=== PATIENT | female | born 1955 | race Caucasian/White ===

== ENCOUNTER 2018-07-04 11:00 | Inpatient (IN) | payer OTHER, MEDICAID ==
[~2018-07-04] VITALS: Ht 162.6 cm; Wt 78.9 kg
--- NOTE | ~2018-07-04 | CON ---
[address] [address] CONSULTATION Name: QAMAR ELAINE Room: [address] IN M.R.#: [id number] Admission: 07/04/18 Attend Phys: Broderick Rain, Discharge: Date of : 51 Report #: [id number] THIS REPORT FOR: //name// CC: Lauro Rain HISTORY OF PRESENT ILLNESS: This is a pleasant 62-year-old female with past medical history significant for dementia, COPD, DVT, hypertension and hyperlipidemia, who was admitted initially for acute exacerbation of her COPD. The patient's history is limited by her baseline mental status and therefore, most of the history has been obtained from the chart. The patient appears to be a resident of a long-term care facility. There is no history of hematemesis, hematochezia or melena. The patient denies any significant abdominal pain, nausea or vomiting. The GI service has been consulted for evaluation of iron deficiency anemia. PAST MEDICAL HISTORY: The patient has history of diabetes, deep venous thrombosis, COPD, bipolar disorder. SOCIAL HISTORY: The patient quit smoking more than 10 years ago, but appears to have had some history of smoking prior to that. No known history of alcohol or recreational drug use and there is no noted family history of colorectal cancer. REVIEW OF SYSTEMS: Unable to obtain due to the patient's mental status. PHYSICAL EXAMINATION: VITAL SIGNS: Temperature 36.8, pulse rate 66, respirations 17, blood pressure 143/76. GENERAL: The patient is alert, oriented to self, but otherwise not oriented to time, place or person. HEENT: Pupils are equal, round, reactive to light and accommodation. Mucous membranes are moist. There is no congestion. LUNGS: Clear to auscultation bilaterally. CARDIOVASCULAR: Rate and rhythm regular, S1, S2 present. ABDOMEN: Soft. There is no distention, guarding or rigidity. EXTREMITIES: There is bilateral pedal edema. SKIN: Warm and dry and there is no icterus. LABORATORY DATA: Hemoglobin 8.2, hematocrit 26.4, platelet 158. Sodium 141, potassium 5.4, chloride 107, bicarbonate 33, BUN 27, creatinine 1.1. Iron 23, TIBC 405, high percent saturation is 6. Albumin 1.3. ASSESSMENT AND PLAN: This is a pleasant 62-year-old female with past medical history of severe chronic obstructive pulmonary disease, bipolar disorder, depression, hypertension, and hyperlipidemia, was brought into the hospital with chronic obstructive pulmonary disease exacerbation. The gastrointestinal service has been consulted for evaluation [place] [address] CONSULTATION Name: QAMAR ELAINE Room: [address] IN [facility].#: [id number] Admission: 07/04/18 Attend Phys: Broderick Rain, Discharge: Date of : 51 Report #: [id number] anemia. An esophagogastroduodenoscopy and colonoscopy will be monitored for thorough evaluation of her iron deficiency anemia. However, the patient appears to have severe chronic obstructive pulmonary disease and is at high risk for respiratory decompensation following sedation for endoscopy. There is no evidence of overt gastrointestinal bleeding and therefore the risk of endoscopy outweighs any potential benefit at this stage. I will discuss the benefits and risks of his CT colonography, which may require lower dose of sedation with the family and this can be ordered on a more elective basis when she recovers from her chronic obstructive pulmonary disease exacerbation. Continue to monitor hemoglobin of the patient and please call gastrointestinal with any questions. By: [id number] De Anda MD /nt
[2018-07-04 11:02] VITALS: BP 132/66
[2018-07-04] MEDS ORDERED: LIPITOR 20 MG T20 M1 PO (11:27)
[2018-07-04] MEDS ORDERED: NORVASC2.5 MG PO (11:27)
[2018-07-04] MEDS ORDERED: DEPAKOTE ER500 MG PO (11:28)
[2018-07-04] MEDS ORDERED: GABAPENTIN 100100 MG PO (11:29)
[2018-07-04] MEDS ORDERED: LASIX 20 MG TAB20 MG PO (11:29)
[2018-07-04 11:30] LABS: HEMATOCRIT 28.3 % (37.0-47.0); HEMOGLOBIN 8.7 gm/dL (12.0-15.0); MCH 27.5 pg (26.0-34.0); MCHC 30.8 g/dL (28.0-37.0); MCV 89.4 fL (80.0-100.0); MPV 7.5 fl. (7.2-11.1); NUCLEATED RBCS 0 /100WBC; PLATELET COUNT* 185 thou/uL (150-400); RBC 3.17 mil/uL (4.20-5.00); RDW-CV 16.6 % (10.5-14.5); WBC 7.9 thou/uL (4.0-11.0)
[2018-07-04] MEDS ORDERED: LITHIUM CARBON150 MG PO (11:30)
[2018-07-04] MEDS ORDERED: FLOMAX0.4 MG PO (11:31)
[2018-07-04] MEDS ORDERED: RISPERIDONE 00.25 MG PO (11:31)
[2018-07-04] MEDS ORDERED: ESKALITH300 MG PO (11:31)
[2018-07-04] MEDS ORDERED: LOPERAMIDE2 MG PO (11:32)
[2018-07-04] MEDS ORDERED: COUMADIN7.5 MG PO (11:33)
[2018-07-04 11:36] LABS: APTT 26.6 Seconds (25.0-31.3); INR 1.7; PROTIME 17.7 Seconds (9.20-11.50)
[2018-07-04 11:40] LABS: BE 7.3 mmol/L (-2 to +3); PO2 63.9 mmHg (75.0-100.0)
[2018-07-04 11:44] LABS: PCO2 78.5 mmHg (35.0-45.0); pH 7.279 (7.340-7.450)
[2018-07-04 11:47] LABS: ALBUMIN 2.7 g/dL (3.4-5.0); ALKALINE PHOSPHATASE 72 U/L (46-116); ANION GAP 0 mmol/L (7-16); BUN 25 mg/dL (7-18); CALCIUM 8.4 mg/dL (8.5-10.1); CHLORIDE 108 mmol/L (98-107); CO2 37 mmol/L (21-32); CREATININE 1.1 mg/dL (0.6-1.3); GLUCOSE 104 mg/dL (70-99); LIPASE 111 U/L (73-393); NT-PRO BRAIN NAT PEPTIDE 342 pg/mL (<300); POTASSIUM 5.3 mmol/L (3.5-5.1); SGOT 11 U/L (15-37); SGPT 10 U/L (30-65); SODIUM 145 mmol/L (136-145); TOTAL BILIRUBIN 0.1 mg/dL (<0.1-1.0); TROPONIN-I LEVEL <0.06 ng/mL (<0.06)
[2018-07-04 12:02] LABS: ABSOLUTE EOSINOPHILS 0.1 thou/uL (0.0-0.7); ABSOLUTE LYMPHOCYTES 0.5 thou/uL (0.8-5.3); ABSOLUTE MONOCYTES 0.6 thou/uL (0.0-1.2); ABSOLUTE NEUTROPHILS 6.8 thou/uL (1.6-8.1); MYELOCYTES 1 %
[2018-07-04 12:03] LABS: HYPOCHROMASIA 3+
[2018-07-04 12:04] LABS: POLYCHROMASIA Occasional
[2018-07-04 12:05] LABS: ANISOCYTOSIS 1+; PLATELET ESTIMATE ADEQUATE; SCHISTOCYTES Occasional
--- NOTE | 2018-07-04 12:34 | EKG ---
[place] [address] ELECTROCARDIOGRAM REPORT Name: QAMAR ELAINE Room: [place] [address] ADM IN ..#: [id number] Admission: 07/04/18 Attend Phys: Broderick Rain, Discharge: Date of : 51 Report #: [id number] THIS REPORT FOR: //name// [facility] ED Test Date: 2018-07-04 Test Time: 11:03:47 Pat Name: QAMAR ELAINE Department: Room: 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 SANCHEZ : 1955 Requested By: Kush Jain Order Number: [id number] MD: Tesfaye Montague Measurements Intervals Prospect Rate: 88 P: 64 RI: 196 QRS: -3 QRSD: 87 T: 67 QT: 370 QTc: 448 Interpretive Statements Sinus rhythm Borderline low voltage, extremity leads No previous ECG available for comparison Electronically Signed On 07-04-2018 12:33:58 [employer] by Tesfaye Montague [email or web address] <ELECTRONICALLY SIGNED> By: Tesfaye Montague MD, [facility] 07/04/18 1233 1103 02 Tesfaye Montague MD, [facility] /EPI
[2018-07-04 14:37] LABS: BE 4.6 mmol/L (-2 to +3); HCO3 33.9 mmol/L (22.0-26.0); PO2 99.2 mmHg (75.0-100.0)
[2018-07-04 15:45] VITALS: BP 121/63
[2018-07-04 15:59] LABS: PCO2 83.1 mmHg (35.0-45.0); pH 7.228 (7.340-7.450)
[2018-07-04 19:35] VITALS: BP 129/67
[2018-07-04 20:39] LABS: URINE BILIRUBIN NEGATIVE (Negative); URINE BLOOD NEGATIVE (Negative); URINE CLARITY CLEAR; URINE COLOR YELLOW; URINE GLUCOSE-RANDOM NEGATIVE (Negative); URINE KETONES NEGATIVE (Negative); URINE LEUKOCYTES-REFLEX NEGATIVE (Negative); URINE NITRITE-REFLEX NEGATIVE (Negative); URINE PROTEIN 1+ (Negative); URINE UROBILINOGEN 0.2 E.U./dl (0.2-1.0)
[2018-07-05 05:16] LABS: BE 1.1 mmol/L (-2 to +3); HCO3 28.8 mmol/L (22.0-26.0); PO2 113.6 mmHg (75.0-100.0)
[2018-07-05 05:21] LABS: PCO2 62.6 mmHg (35.0-45.0); pH 7.281 (7.340-7.450)
[2018-07-05 07:50] VITALS: BP 145/62
[2018-07-05 08:52] LABS: HEMOGLOBIN 8.5 gm/dL (12.0-15.0); MCH 27.4 pg (26.0-34.0); MCHC 30.5 g/dL (28.0-37.0); MCV 90.1 fL (80.0-100.0); MPV 8.4 fl. (7.2-11.1); RBC 3.1 mil/uL (4.20-5.00); RDW-CV 16.6 % (10.5-14.5); WBC 4.5 thou/uL (4.0-11.0)
[2018-07-05 08:59] LABS: INR 1.2; PROTIME 12.2 Seconds (9.20-11.50)
[2018-07-05 09:07] LABS: ALBUMIN 2.6 g/dL (3.4-5.0); ALKALINE PHOSPHATASE 78 U/L (46-116); ANION GAP 1 mmol/L (7-16); BUN 28 mg/dL (7-18); CHLORIDE 110 mmol/L (98-107); CO2 33 mmol/L (21-32); CREATININE 1.2 mg/dL (0.6-1.3); GLUCOSE 201 mg/dL (70-99); MAGNESIUM 1.9 mg/dL (1.8-2.4); SGOT 24 U/L (15-37); SGPT 27 U/L (30-65); SODIUM 144 mmol/L (136-145); TOTAL BILIRUBIN 0.2 mg/dL (<0.1-1.0); TOTAL PROTEIN 5.9 g/dL (6.4-8.2); TROPONIN-I LEVEL <0.06 ng/mL (<0.06)
[2018-07-05 10:54] LABS: INFLUENZA A ANTIGEN None Detected (None Detect); INFLUENZA B ANTIGEN None Detected (None Detect)
[2018-07-05 12:00] VITALS: BP 123/69
[2018-07-05 16:00] VITALS: BP 130/82
[2018-07-05 19:30] VITALS: BP 131/83
[2018-07-06] VITALS: BP 183/90
--- NOTE | 2018-07-06 07:03 | CON ---
[address] [address] CONSULTATION Name: ELAINEQAMAR Room: [address] IN M.R.#: [id number] Admission: 07/04/18 Attend Phys: Broderick Rain, Discharge: Date of : 51 Report #: [id number] THIS REPORT FOR: //name// CC: Lauro Rain REQUESTING PHYSICIAN: Dr. Rain. REASON FOR CONSULTATION: Aspiration pneumonia and respiratory failure. DISCUSSION: The patient is a 62-year-old woman who was brought to the Emergency Department yesterday evening from her long-term care facility. She apparently had developed increasing respiratory distress and was having a fever. She was not very responsive. Apparently was noted to have dried emesis around her mouth. She was treated recently for pneumonia. O2 saturations were low. She was initially seen in the Emergency Department. Arterial blood gases did reveal hypercapnia and mild hypoxemia. She was subsequently placed on BiPAP. She was having some difficulty tolerating that. She did receive some sedation during the night. Just prior to my seeing earlier this morning, she was able to come off the BiPAP and placed on nasal cannula. She is a fair historian. She has not been at this facility previously. She does carry a diagnosis of COPD. She notes she quit smoking greater than 10 years ago. She states she is on O2 continuously. She had been living in the [facility], was back to this area about 4 or 5 months ago to be closer to other family members. She does have sisters who are her DPOA. Besides a history of COPD, she does have a history of thromboembolic disease. She has had DVT in the past. She does acknowledge that she has had a PE. She has an IVC filter in place, which she notes was placed in [place]. She is chronically anticoagulated. She has been treated for pneumonia in the past as well. She denies having any history of any cancers. She does have a history of bipolar disorder, hypothyroidism and dyslipidemia. On the transfer notes, her medications have been Norvasc, Lipitor, Depakote, Lasix, gabapentin, lithium, risperidone, Flomax, warfarin and p.r.n. Imodium. She also had a p.r.n. Ventolin inhaler noted, which was not on her med sheet in the computer. SOCIAL HISTORY: Remote smoker as noted. She also denies drinking any alcohol. Acknowledges that she held a variety of jobs in the past. FAMILY HISTORY: She denies any family history of lung disease. REVIEW OF SYSTEMS: ROS was done. No positives as above. She does not recall the events that triggered her being brought to the hospital. This morning, she is complaining of a dry mouth and is hungry. [place] [address] CONSULTATION Name: MONAE ELAINEERIE Room: [address] IN [facility]#: [id number] Admission: 07/04/18 Attend Phys: Broderick Rain, Discharge: Date of : 51 Report #: [id number] Denies any shortness of breath. She does acknowledge some cough. She states her sputum is somewhat yellow. She denies any hemoptysis. Denies any chest pain. She is not aware of having any fevers at the nursing facility prior to being transferred over to the hospital. She has intermittently had some lower extremity edema. She denies any syncopal episodes that she is aware of. PHYSICAL EXAMINATION: GENERAL APPEARANCE: A woman who looks chronically ill. She is off the BiPAP and is on O2 via nasal cannula. HEENT: Head is normocephalic. Sclerae nonicteric. Mucous membranes are quite dry. No thrush is noted. NECK: Negative for adenopathy. HEART: Regular though mildly tachycardic. No S3 is heard. LUNGS: Show breath sounds to be diminished. She has prolonged expiratory phase. She does have some scattered wheezes that are heard. ABDOMEN: Soft. No hepatosplenomegaly. She has a well-healed lower midline abdominal scar. EXTREMITIES: She has no clubbing. Radial pulses are present. Lower extremities: She does have trace to 1+ edema. Denies any calf tenderness. SKIN: Warm and dry. Turgor is fair. NEUROLOGIC: She is alert and oriented. At times, her speech is a little difficult to understand. She does not appear to have any focal deficits. Moving all extremities. LABORATORY AND X-RAY FINDINGS: BUN is 28, creatinine of 1.2, potassium 5.0, bicarbonate of 33 and down from 37 yesterday. Albumin 2.6. ProBNP yesterday was 342. INR was 1.2. White blood cell count 4500, hemoglobin 8.5, hematocrit of 28 and platelets are normal. Her white count yesterday was 7900. Influenza screen is pending. Arterial blood gases done yesterday initially in the ED, she had a pH of 7.28, pCO2 of 79, pO2 of 64, bicarbonate 36 with a saturation of 89%. Most recent blood gases done early this morning, pH 7.28, pCO2 of 63, pO2 of 114, bicarbonate of 29 with a saturation of 97%. That was on the BiPAP with FiO2 of 40%. Blood cultures have been sent and those results are pending. She did have a chest x-ray done portable study yesterday. Does have some mild cardiomegaly. Some bibasilar infiltrates are noted. Does not appear to have any significant pleural effusions. She did receive some lorazepam and morphine during the night. CURRENT MEDICATIONS: Levofloxacin, amlodipine, vancomycin, warfarin, lithium, DuoNeb q.i.d. with p.r.n. albuterol, methylprednisolone and Depakote. IMPRESSION: 1. Bibasilar infiltrates consistent with pneumonia. May have aspirated. She apparently did have an episode of emesis at her nursing facility. 2. Acute respiratory failure superimposed [place] [address] CONSULTATION Name: QAMAR ELAINE Room: [address] IN [facility]#: [id number] Admission: 07/04/18 Attend Phys: Broderick Rain, Discharge: Date of : 51 Report #: [id number] Looks much brighter this morning. Clinically, she is doing well off the BiPAP. 3. Chronic obstructive pulmonary disease, severity unknown though I suspect it may be at least moderate to severe. Reportedly is O2 dependent. 4. Past history of thromboembolic disease. She is on chronic warfarin thought it does not appear that she had a therapeutic INR at the time of admission yesterday. She is status post IVC filter. 5. Anemia. RECOMMENDATIONS: 1. Discussed with nursing staff. We will check bedside swallow evaluation. She does look awake and alert enough and we could probably start p.o. intake if she passes her bedside swallow evaluation. 2. Continue antibiotics. 3. Check MRSA screen. 4. Increase activity as tolerated. 5. Follow up chest x-ray tomorrow. 6. Wean FiO2 as able. 7. Minimize sedation as needed. If we can keep her off the BiPAP, I think that will help. <ELECTRONICALLY SIGNED> By: Telma Bauer MD 07/06/18 0703 [id number] [id number] Bauer MD /nt
[2018-07-06 08:20] VITALS: BP 154/64
[2018-07-06 10:54] LABS: ABSOLUTE LYMPHOCYTES 0.3 thou/uL (0.8-5.3); ABSOLUTE MONOCYTES 0.1 thou/uL (0.0-1.2); ABSOLUTE NEUTROPHILS 5.1 thou/uL (1.6-8.1); BASOPHILS 0.2 %; HEMATOCRIT 28.9 % (37.0-47.0); HEMOGLOBIN 8.8 gm/dL (12.0-15.0); LYMPHOCYTES 5.2 %; MCH 27.6 pg (26.0-34.0); MCHC 30.4 g/dL (28.0-37.0); MCV 90.5 fL (80.0-100.0); MONOCYTES 2.6 %; NUCLEATED RBCS 0 /100WBC; PLATELET COUNT* 167 thou/uL (150-400); RBC 3.19 mil/uL (4.20-5.00); RDW-CV 16.2 % (10.5-14.5); WBC 5.6 thou/uL (4.0-11.0)
[2018-07-06 10:55] LABS: CALCIUM 9.2 mg/dL (8.5-10.1); CREATININE 1.1 mg/dL (0.6-1.3); POTASSIUM 5.5 mmol/L (3.5-5.1)
[2018-07-06 10:56] LABS: INR 1.3; PROTIME 13.6 Seconds (9.20-11.50)
[2018-07-06 12:00] VITALS: BP 138/72
[2018-07-06 16:00] VITALS: BP 140/68
[2018-07-06 19:30] VITALS: BP 135/63
[2018-07-07] VITALS: BP 152/78
[2018-07-07 04:00] VITALS: BP 143/68
[2018-07-07 04:03] LABS: HEMATOCRIT 26.4 % (37.0-47.0); HEMOGLOBIN 8.2 gm/dL (12.0-15.0); MCH 27.6 pg (26.0-34.0); MCHC 30.9 g/dL (28.0-37.0); MCV 89.4 fL (80.0-100.0); MPV 8.1 fl. (7.2-11.1); RBC 2.95 mil/uL (4.20-5.00); RDW-CV 16.4 % (10.5-14.5); WBC 6.4 thou/uL (4.0-11.0)
[2018-07-07 04:15] LABS: CALCIUM 8.7 mg/dL (8.5-10.1); CREATININE 1.1 mg/dL (0.6-1.3); MAGNESIUM 1.7 mg/dL (1.8-2.4); POTASSIUM 5.4 mmol/L (3.5-5.1)
[2018-07-07 09:00] VITALS: BP 154/72
[2018-07-07 12:00] VITALS: BP 144/75
[2018-07-07 16:00] VITALS: BP 143/76
[2018-07-07 19:50] VITALS: BP 166/75
[2018-07-08] VITALS: BP 157/77
[2018-07-08 05:33] LABS: ABSOLUTE LYMPHOCYTES 0.9 thou/uL (0.8-5.3); ABSOLUTE MONOCYTES 0.6 thou/uL (0.0-1.2); ABSOLUTE NEUTROPHILS 3.8 thou/uL (1.6-8.1); BASOPHILS 0.2 %; HEMATOCRIT 26.2 % (37.0-47.0); HEMOGLOBIN 8.3 gm/dL (12.0-15.0); LYMPHOCYTES 16.7 %; MCH 27.7 pg (26.0-34.0); MCHC 31.7 g/dL (28.0-37.0); MCV 87.2 fL (80.0-100.0); MONOCYTES 10.7 %; MPV 8.2 fl. (7.2-11.1); NUCLEATED RBCS 0 /100WBC; PLATELET COUNT* 153 thou/uL (150-400); POLYS 72.4 %; RDW-CV 16.4 % (10.5-14.5); WBC 5.2 thou/uL (4.0-11.0)
[2018-07-08 05:51] LABS: ALBUMIN 2.3 g/dL (3.4-5.0); POTASSIUM 4.9 mmol/L (3.5-5.1); TOTAL BILIRUBIN 0.2 mg/dL (<0.1-1.0); TOTAL PROTEIN 5.3 g/dL (6.4-8.2)
[2018-07-08 05:52] LABS: INR 2.9; PROTIME 29.4 Seconds (9.20-11.50)
[2018-07-08 09:00] VITALS: BP 148/68
[2018-07-08 11:55] VITALS: BP 140/71
[2018-07-08] MEDS ORDERED: IPRAT-ALBUT 0.5-3 ML INH (12:28)
[2018-07-08] MEDS ORDERED: PROTONIX 20 MG20 M1 PO (12:29)
[2018-07-08] MEDS ORDERED: PREDNISONE 20 M20 MG PO (12:30)
[2018-07-08] MEDS ORDERED: SEROQUEL 50 MG50 MG PO (12:30)
[2018-07-08 12:47] VITALS: BP 140/71
== END 2018-07-08 15:10 | DRG 871 ==
LOC: M.ERS 11:00 → M.2W 12:19 → M.TBA-ER 12:19 → M.2W 16:02
PROVIDERS: Family Medicine; Internal Medicine; Internal Medicine Pulmonary Disease; ADMIT Family Medicine
PROC: 5A09357 Assistance with Respiratory Ventilation, Less than 24 Consecutive Hours, Continuous Positive Airway Pressure (ICD-10-PCS; principal; 2018-07-04)
DX: A41.9 Sepsis, unspecified organism (principal); J96.22 Acute and chronic respiratory failure with hypercapnia; J96.21 Acute and chronic respiratory failure with hypoxia; J69.0 Pneumonitis due to inhalation of food and vomit; G93.49 Other encephalopathy; E11.9 Type 2 diabetes mellitus without complications; I11.0 Hypertensive heart disease with heart failure; F31.9 Bipolar disorder, unspecified; F03.90 Unspecified dementia, unspecified severity, without behavioral disturbance, psychotic disturbance, mood disturbance, and anxiety; J43.9 Emphysema, unspecified; E78.5 Hyperlipidemia, unspecified; I50.9 Heart failure, unspecified; E03.9 Hypothyroidism, unspecified; D50.9 Iron deficiency anemia, unspecified; Z66 Do not resuscitate; Z53.29 Procedure and treatment not carried out because of patient's decision for other reasons; Z87.01 Personal history of pneumonia (recurrent); Z86.718 Personal history of other venous thrombosis and embolism; Z79.899 Other long term (current) drug therapy; Z79.01 Long term (current) use of anticoagulants; Z79.82 Long term (current) use of aspirin; Z88.0 Allergy status to penicillin; Z88.6 Allergy status to analgesic agent; Z88.8 Allergy status to other drugs, medicaments and biological substances; Z87.891 Personal history of nicotine dependence; Z91.19 Patient's noncompliance with other medical treatment and regimen